=== PATIENT | female | born 1970 | race Caucasian/White ===

== ENCOUNTER 2017-04-28 13:22 | Observation (INO) ==
[2017-04-28] MEDS ORDERED: ASPIRIN PO STA (13:34)
[2017-04-28] MEDS ORDERED: PROTONIX IV ONE (13:36)
[2017-04-28] MEDS ORDERED: ZOFRAN IV ONE ×2 (13:36→16:45)
[2017-04-28] MEDS ORDERED: SODIUM CHLORIDE 0.9% INJ ONE (13:36)
--- NOTE | 2017-04-28 13:38 | EKG Report ---
Test Performed on : 04/28/2017 1:27:05 PM Test Reason : cp Blood Pressure : / mmHG Vent. Rate : 099 BPM Atrial Rate : 099 BPM P-R Int : 130 ms QRS Dur : 082 ms QT Int : 336 ms P-R-T Axes : 064 032 042 degrees QTc Int : 431 ms Normal sinus rhythm. Possible Left atrial enlargement Borderline ECG No previous ECGs available Unconfirmed Result
--- NOTE | 2017-04-28 13:45 | PROVIDER DOCUMENTATION ---
HPI-General Adult - General Chief Complaint: Chest Pain Stated Complaint: NAUSEA/VOMITING/FATIGUE Time Seen by Provider: 04/28/17 13:24 Source: patient Allergies/Adverse Reactions: Patient Allergies Allergy/AdvReac Type Severity Reaction Status Date / Time No Known Allergies Allergy Verified 04/28/17 13:47 Home Medications: Home Medication List Medication Instructions Recorded Confirmed Last Taken Type Aspirin EC 81 mg PO DAILY 04/28/17 04/28/17 04/28/17 04:00 History Dextroamphetamine/Amphetamine 20 mg PO DAILY 04/28/17 04/28/17 04/28/17 04:00 History [Adderall 20 mg Tablet] Ergocalciferol (Vitamin D2) 1 dose PO DIRECTED 04/28/17 04/28/17 04/25/17 History [Vitamin D] Escitalopram Oxalate [Escitalopram 20 mg PO DAILY 04/28/17 04/28/17 04/28/17 04: 00 History Oxalate] Hydrocodone Bit/Acetaminophen 1 each PO TID PRN 04/28/17 04/28/17 04/27/17 18: 00 History [Hydrocodon-Acetaminophen 5-325] Levothyroxine Sodium 50 mcg PO DAILY 04/28/17 04/28/17 04/28/17 04:00 History [Levothyroxine Sodium] Oxybutynin [Ditropan] 5 mg PO DAILY 04/28/17 04/28/17 04/28/17 04:00 History - History of Present Illness -Gen Adult Nature of Presenting Problems: Pt. is 46 yof that presents with c/o CP, SOB, with N/V. Pt. reports onset was this morning while getting ready and states it hasn't gone away. Pt. reports the pain is a pressure that won't go away and she denies any previous cardiac Hx but states her family has cardiac problems. Pt. denies any other symptoms. Location of Pain/Injury: reports: chest. denies: none, head, face, mouth, neck , upper extremity, hand(s), abdomen, back, pelvis, genitalia, lower extremity, feet, upper body, lower body, generalized, other Pain Radiation: reports: no radiation. denies: arm(s), back, buttocks, chest, epigastric, feet, groin, jaw, flank (L), legs (lower), LLQ, LUQ, neck, periumbilical, flank (R), RLQ, RUQ, shoulder(s), scapula, scrotal, sternal notch , suprapubic, legs (upper), urethral, vaginal, other Quality of Pain: reports: dull, pressure. denies: aching, burning, cramping, fullness, indigestion, sharp, stabbing, tearing, throbbing, tightness Severity: reports: moderate. denies: mild, severe Onset/Duration: reports: abrupt, this morning Timing: reports: still present, constant. denies: improving, gone now, resolved prior to arrival, intermittent, changing over time, getting worse Context/Activities at Onset: reports: light activity. denies: recent emotional stress, recent physical stress, recent trauma history, possible bad food, cold exposure, eating, out of country travel Modifying Factors: improves with: nothing Associated Symptoms: reports: chest pain, headaches, nausea, shortness of breath , vomiting. denies: denies symptoms, anxiety, arm pain, back/neck pain, constipation, cough, diaphoresis, diarrhea, dizziness, EENT symptoms, fatigue, fever/chills, genitourinary problems, heartburn, joint pain, loss of appetite, malaise, muscle aches, sinus congestion/drainage, rash, seizure, sensory/motor loss, pain with inspiration, swelling/mass in abdomen, syncope, weakness, trouble walking, other Similar Symptoms Previously?: Yes Recently seen or treated by another doctor?: No Review of Systems - Adult - REVIEW OF SYSTEMS - ADULT Constitutional: reports: see HPI. denies: chills, fever, fatique Eyes: reports: see HPI. denies: discharge, blurred vision, double vision Ears, Nose, Mouth & Throat: reports: see HPI. denies: ear pain, sinus problem, mouth/dental pain, throat swelling Cardiovascular: reports: see HPI, chest pain. denies: irregular heart rate, orthopnea, syncope Respiratory: reports: see HPI, shortness of breath. denies: cough, dyspnea on exertion, pleurisy, wheezing Gastrointestinal: reports: see HPI, nausea, vomiting. denies: abdominal pain, diarrhea, difficulty swallowing Genitourinary: reports: see HPI. denies: dysuria, flank pain, hesitency, urgency Musculoskeletal: reports: see HPI. denies: bone pain, joint pain, muscle aches , neck pain Integumentary: reports: see HPI. denies: hives, itching, rash, skin thickening Neurological: reports: see HPI, headache/migraines. denies: ataxia, numbness, seizure, tremors Psychiatric: reports: see HPI. denies: anxiety, depression, emotional problems , insomnia, panic attacks, suicidal thoughts Past History - Adult - PAST MEDICAL HISTORY-ADULT Review of Records: reports: Old Records Reviewed, Nursing Assessment Review, Medications Reviewed, Social history reviewed & non-contributory. - IMMUNIZATION STATUS Childhood Immunizations: See Nurse Assessment Flu Vaccine: See Nurse Assessment - FAMILY HISTORY Family History: reviewed, not pertinent - SOCIAL HISTORY Smoking: cigarettes, greater than 1 pack/day Provider spent 3-5 mins advising pt. on dangers of tobacco.: Discussed the need to stop smoking. Physical Exam-General - PHYSICAL EXAM-ADULT Initial Vital Signs Reviewed: Yes - CONSTITUTIONAL General Appearance: alert, mild distress, obese, anxious. negative: thin, lethargic, slow to respond, obtunded, combative - EYES Eyes: PERRL/EOMI, pink conjunctivae. negative: conjuctival exudate, scleral icterus, subconjunctival hemorrhage - HEAD, EARS, NOSE, MOUTH & THROAT HENMT: normocephalic/atraumatic, moist mucous membranes. negative: angioedema, frontal tenderness, maxillary tenderness - NECK Neck: non-tender, full range of motion, supple, normal inspection. negative: lymphadenopathy, trachial deviation, thyromegaly - RESPIRATORY Respiratory: lungs clear, normal breath sounds. negative: crackles, rales, rhonchi, stridor, wheezing - CARDIOVASCULAR Cardiovascular: normal peripheral pulses, regular rate, rhythm, no edema, no JVD , no murmur. negative: extra beats, friction rub, irregularly irregular - GASTROINTESTINAL (ABDOMEN) Abdominal Exam: normal bowel sounds, non tender, soft. negative: distended, guarding, rigid, rebound, tenderness, hernia, mass - LYMPHATIC Lymphatic: no adenopathy. negative: axilla node tender, cervical node tenderness - MUSCULOSKELETAL Back Exam: normal inspection, no CVA tenderness, no vertebral tenderness. negative: ecchymosis, swelling, vertebral tenderness Extremity: normal range of motion, non-tender, normal gait, normal inspection. negative: deformity, erythema, inflammation, swelling, tenderness Peripheral Pulses: radial (R): 2+, radial (L): 2+ - SKIN Integumentary: normal color, normal turgor, warm/dry. negative: cyanosis, diaphoresis, ecchymosis, erythema, jaundice, mottled, pallor, petechiae, purpura , rash, swelling, tenderness - NEUROLOGIC Neurologic: grossly normal, no motor/sensory deficits. negative: aphasia, facial droop, focal weakness, motor weakness, sensory deficit - PSYCHIATRIC Psych/Mental Status: normal mood/affect, normal thought content, normal thought process, oriented x 3, anxious. negative: paranoid, tearful Progress - PLAN OF CARE/RESULTS Progress/Plan/Lab Results: Vital Signs - 8 hr 04/28/17 13:24 Temperature 98.4 F Pulse Rate 102 H Respiratory Rate 18 Blood Pressure 127/73 O2 Sat by Pulse Oximetry 100 Orders Category Date Time Status Cardiac Monitoring DIRECTED Care 04/28/17 13:34 Active Oxygen Therapy- ED Nursing DIRECTED Care 04/28/17 13:34 Active Saline Loc NOW Care 04/28/17 13:34 Active CHEST-2 VIEWS [RAD] Stat Exams 04/28/17 13:34 Ordered CBC WITH ELECTRONIC DIFF [HEME] Stat Lab 04/28/17 13:34 Uncollected CK PROFILE [SP CHEM] Stat Lab 04/28/17 13:34 Uncollected COMPREHENSIVE METABOLIC PANEL [CHEM] Stat Lab 04/28/17 13:34 Uncollected D-DIMER [CHEM] Stat Lab 04/28/17 13:34 Uncollected MAGNESIUM [CHEM] Stat Lab 04/28/17 13:34 Uncollected PRO B-NATRIURETIC PEPTIDE Stat Lab 04/28/17 13:34 Uncollected PROTIME WITH INR [COAG] Stat Lab 04/28/17 13:34 Uncollected PTT [COAG] Stat Lab 04/28/17 13:34 Uncollected TROPONIN T Stat Lab 04/28/17 13:34 Uncollected Aspirin Med 04/28/17 13:34 Stat 325 mg PO STAT STA Ondansetron [Zofran] Med 04/28/17 13:36 Once 4 mg IV NOW ONE Pantoprazole [Protonix] Med 04/28/17 13:36 Once 40 mg IV NOW ONE Sodium Chloride 0.9% Med 04/28/17 13:36 Once 10 ml INJ NOW ONE EKG [EKG] Stat Ther 04/28/17 13:29 Ordered Laboratory Tests 04/28/17 04/28/17 04/28/17 13:56 13:56 13:56 WBC 17.79 H RBC 3.89 L Hgb 12.7 Hct 36.5 L MCV 93.8 MCH 32.6 H MCHC 34.8 RDW Std Deviation 11.8 Plt Count 270 MPV 9.4 Neut % (Auto) 73.9 Lymph % (Auto) 11.9 L Martin % (Auto) 13.9 H Eos % (Auto) 0.2 Baso % (Auto) 0.1 Neut # (Auto) 13.15 H Lymph # (Auto) 2.12 Martin # (Auto) 2.47 H Eos # (Auto) 0.03 Baso # (Auto) 0.02 PT INR PTT (Actin FS) D-Dimer 1.27 H Sodium 132 L Potassium 3.5 Chloride 92 L Carbon Dioxide 24 L Anion Gap 16 BUN 14 Creatinine 1.0 H Estimated GFR/1.73 m2 60 BUN/Creatinine Ratio 14 Glucose 118 H Calculated Osmolality 266 Calcium 9.0 Magnesium 1.7 Total Bilirubin 1.22 H AST 12 ALT 10 Alkaline Phosphatase 79 Creatine Kinase 67 Troponin T Ukk-E-Qpazzprrspi Pept Total Protein 7.2 Albumin 3.7 Globulin 3.5 Albumin/Globulin Ratio 1.1 TSH Urine Source Urine Color Urine Turbidity Urine pH Ur Specific Harrod Urine Protein Ur Glucose (Stick) Ur Ketones (Stick) Urine Blood Urine Nitrite Urine Bilirubin Urobilinogen Dipstick Urine Leukocytes Urine WBC (Auto) Urine RBC (Auto) U Epithel Cells (Auto) Urine Bacteria (Auto) Urine Crystals Small Round Cells Urine Casts Urine Yeast-like Cells Urine Test 04/28/17 04/28/17 04/28/17 13:56 13:56 13:56 WBC RBC Hgb Hct MCV MCH MCHC RDW Std Deviation Plt Count MPV Neut % (Auto) Lymph % (Auto) Martin % (Auto) Eos % (Auto) Baso % (Auto) Neut # (Auto) Lymph # (Auto) Martin # (Auto) Eos # (Auto) Baso # (Auto) PT 11.8 H INR 1.12 PTT (Actin FS) 34.1 D-Dimer Sodium Potassium Chloride Carbon Dioxide Anion Gap BUN Creatinine Estimated GFR/1.73 m2 BUN/Creatinine Ratio Glucose Calculated Osmolality Calcium Magnesium Total Bilirubin AST ALT Alkaline Phosphatase Creatine Kinase Troponin T < 0.010 Lhb-G-Ryweqibmxpa Pept 257 H Total Protein Albumin Globulin Albumin/Globulin Ratio TSH Urine Source Urine Color Urine Turbidity Urine pH Ur Specific Harrod Urine Protein Ur Glucose (Stick) Ur Ketones (Stick) Urine Blood Urine Nitrite Urine Bilirubin Urobilinogen Dipstick Urine Leukocytes Urine WBC (Auto) Urine RBC (Auto) U Epithel Cells (Auto) Urine Bacteria (Auto) Urine Crystals Small Round Cells Urine Casts Urine Yeast-like Cells Urine Test 04/28/17 04/28/17 04/28/17 13:56 14:24 14:24 WBC RBC Hgb Hct MCV MCH MCHC RDW Std Deviation Plt Count MPV Neut % (Auto) Lymph % (Auto) Martin % (Auto) Eos % (Auto) Baso % (Auto) Neut # (Auto) Lymph # (Auto) Martin # (Auto) Eos # (Auto) Baso # (Auto) PT INR PTT (Actin FS) D-Dimer Sodium Potassium Chloride Carbon Dioxide Anion Gap BUN Creatinine Estimated GFR/1.73 m2 BUN/Creatinine Ratio Glucose Calculated Osmolality Calcium Magnesium Total Bilirubin AST ALT Alkaline Phosphatase Creatine Kinase Troponin T Ies-U-Qsnrofbrurs Pept Total Protein Albumin Globulin Albumin/Globulin Ratio TSH 2.79 Urine Source CLEAN CATCH Urine Color YELLOW Urine Turbidity HAZY Urine pH 8.5 Ur Specific [place]rod 1.009 Urine Protein 30 A Ur Glucose (Stick) NEGATIVE Ur Ketones (Stick) 40 A Urine Blood SMALL A Urine Nitrite POSITIVE A Urine Bilirubin NEGATIVE Urobilinogen Dipstick NORMAL Urine Leukocytes LARGE A Urine WBC (Auto) TNTC A Urine RBC (Auto) <10 U Epithel Cells (Auto) <10 Urine Bacteria (Auto) 4+ Urine Crystals NONE SEEN Small Round Cells NONE SEEN Urine Casts NONE SEEN Urine Yeast-like Cells NONE SEEN Urine Test NEGATIVE 04/28/17 04/28/17 16:16 16:16 WBC RBC Hgb Hct MCV MCH MCHC RDW Std Deviation Plt Count MPV Neut % (Auto) Lymph % (Auto) Martin % (Auto) Eos % (Auto) Baso % (Auto) Neut # (Auto) Lymph # (Auto) Martin # (Auto) Eos # (Auto) Baso # (Auto) PT INR PTT (Actin FS) D-Dimer Sodium Potassium Chloride Carbon Dioxide Anion Gap BUN Creatinine Estimated GFR/1.73 m2 BUN/Creatinine Ratio Glucose Calculated Osmolality Calcium Magnesium Total Bilirubin AST ALT Alkaline Phosphatase Creatine Kinase 63 Troponin T < 0.010 Chb-Z-Gtxnajhfuks Pept Total Protein Albumin Globulin Albumin/Globulin Ratio TSH Urine Source Urine Color Urine Turbidity Urine pH Ur Specific Harrod Urine Protein Ur Glucose (Stick) Ur Ketones (Stick) Urine Blood Urine Nitrite Urine Bilirubin Urobilinogen Dipstick Urine Leukocytes Urine WBC (Auto) Urine RBC (Auto) U Epithel Cells (Auto) Urine Bacteria (Auto) Urine Crystals Small Round Cells Urine Casts Urine Yeast-like Cells Urine Test Orders Category Date Time Status Cardiac Monitoring DIRECTED Care 04/28/17 13:34 Active ED: Urine Bedside ORDERED Care 04/28/17 15:04 Active Oxygen Therapy- ED Nursing DIRECTED Care 04/28/17 13:34 Active Saline Loc NOW Care 04/28/17 13:34 Active CHEST-2 VIEWS [RAD] Stat Exams 04/28/17 13:34 Completed CTA [CT ANGIOGRM/PULMONARY ARTERIES] [CT] Stat Exams 04/28/17 15:00 Completed CBC WITH ELECTRONIC DIFF [HEME] Stat Lab 04/28/17 13:56 Completed CK PROFILE [SP CHEM] Stat Lab 04/28/17 13:56 Completed CK PROFILE [SP CHEM] Stat Lab 04/28/17 16:16 Completed COMPREHENSIVE METABOLIC PANEL [CHEM] Stat Lab 04/28/17 13:56 Completed D-DIMER [CHEM] Stat Lab 04/28/17 13:56 Completed MAGNESIUM [CHEM] Stat Lab 04/28/17 13:56 Completed TEST-URINE [PREG] Stat Lab 04/28/17 14:24 Completed PRO B-NATRIURETIC PEPTIDE Stat Lab 04/28/17 13:56 Completed PROTIME WITH INR [COAG] Stat Lab 04/28/17 13:56 Completed PTT [COAG] Stat Lab 04/28/17 13:56 Completed TROPONIN T Stat Lab 04/28/17 13:56 Completed TROPONIN T Stat Lab 04/28/17 16:16 Completed TSH Stat Lab 04/28/17 13:56 Completed URINALYSIS W/POSS RFLX CULT-1 [URINALYSIS] Stat Lab 04/28/17 14:24 Completed URINE CULTURE [RM] Routine Lab 04/28/17 15:24 Received URINE MANUAL MICROSCOPIC [URINALYSIS] Stat Lab 04/28/17 14:24 Completed 0.9% Sodium Chloride Inj [Ns] 1,000 ml Med 04/28/17 15:45 Active IV 125 mls/hr Aspirin Med 04/28/17 13:34 Discontinued 325 mg PO STAT STA CefTRIAXONE [Rocephin] 1 gm Med 04/28/17 15:45 Discontinued 0.9% Sodium Chloride Inj [Ns] 50 ml IV NOW Lido/Lewis Alk/Al&mg Hydrox [G.i. Cocktail] Med 04/28/17 16:48 Once 30 ml PO NOW ONE Morphine Med 04/28/17 16:45 Once 2 mg IV NOW ONE Ondansetron [Zofran] Med 04/28/17 13:36 Discontinued 4 mg IV NOW ONE Ondansetron [Zofran] Med 04/28/17 16:45 Once 4 mg IV NOW ONE Pantoprazole [Protonix] Med 04/28/17 13:36 Discontinued 40 mg IV NOW ONE Sodium Chloride 0.9% Med 04/28/17 13:36 Discontinued 10 ml INJ NOW ONE EKG [EKG] Stat Ther 04/28/17 13:29 Draft EKG [EKG] Stat Ther 04/28/17 15:47 Draft Vital Signs Temp Pulse Resp BP Pulse Ox 04/28/17 15:44 102 H 18 108/66 96 04/28/17 13:24 98.4 F 102 H 18 127/73 100 No Known Allergies Allergy (Verified 04/28/17 13:47) Aspirin EC 81 mg PO DAILY 04/28/17 Dextroamphetamine/Amphetamine [Adderall 20 mg Tablet] 20 mg PO DAILY 04/28/17 Ergocalciferol (Vitamin D2) [Vitamin D] 1 dose PO DIRECTED 04/28/17 Escitalopram Oxalate [Escitalopram Oxalate] 20 mg PO DAILY 04/28/17 Hydrocodone Bit/Acetaminophen [Hydrocodon-Acetaminophen 5-325] 1 each PO TID PRN 04/28/17 Levothyroxine Sodium [Levothyroxine Sodium] 50 mcg PO DAILY 04/28/17 Oxybutynin [Ditropan] 5 mg PO DAILY 04/28/17 I&O 04/27/17 04/28/17 04/29/17 06:59 06:59 06:59 Output Total 40 / 40 Balance -40 / -40 Laboratory 04/28/17 04/28/1704/28/17 16:16 16:16 14:24 WBC RBC Hgb Hct MCV MCH MCHC RDW Std Deviation Plt Count MPV Neut % (Auto) Lymph % (Auto) Martin % (Auto) Eos % (Auto) Baso % (Auto) Neut # (Auto) Lymph # (Auto) Martin # (Auto) Eos # (Auto) Baso # (Auto) PT INR PTT (Actin FS) D-Dimer Sodium Potassium Chloride Carbon Dioxide Anion Gap BUN Creatinine Estimated GFR/1.73 m2 BUN/Creatinine Ratio Glucose Calculated Osmolality Calcium Magnesium Total Bilirubin AST ALT Alkaline Phosphatase Creatine Kinase 63 Troponin T < 0.010 Nft-Q-Mdcfokdlwcy Pept Total Protein Albumin Globulin Albumin/Globulin Ratio TSH Urine Source Urine Color Urine Turbidity Urine pH Ur Specific Har[place] Urine Protein Ur Glucose (Stick) Ur Ketones (Stick) Urine Blood Urine Nitrite Urine Bilirubin Urobilinogen Dipstick Urine Leukocytes Urine WBC (Auto) Urine RBC (Auto) U Epithel Cells (Auto) Urine Bacteria (Auto) Urine Crystals Small Round Cells Urine Casts Urine Yeast-like Cells Urine Test NEGATIVE 04/28/17 04/28/17 04/28/17 14:24 13:56 13:56 WBC RBC Hgb Hct MCV MCH MCHC RDW Std Deviation Plt Count MPV Neut % (Auto) Lymph % (Auto) Martin % (Auto) Eos % (Auto) Baso % (Auto) Neut # (Auto) Lymph # (Auto) Martin # (Auto) Eos # (Auto) Baso # (Auto) PT INR PTT (Actin FS) D-Dimer Sodium Potassium Chloride Carbon Dioxide Anion Gap BUN Creatinine Estimated GFR/1.73 m2 BUN/Creatinine Ratio Glucose Calculated Osmolality Calcium Magnesium Total Bilirubin AST ALT Alkaline Phosphatase Creatine Kinase Troponin T < 0.010 Niu-W-Jorzuzuqycj Pept Total Protein Albumin Globulin Albumin/Globulin Ratio TSH 2.79 Urine Source CLEAN CATCH Urine Color YELLOW Urine Turbidity HAZY Urine pH 8.5 Ur Specific Harrod 1.009 Urine Protein 30 A Ur Glucose (Stick) NEGATIVE Ur Ketones (Stick) 40 A Urine Blood SMALL A Urine Nitrite POSITIVE A Urine Bilirubin NEGATIVE Urobilinogen Dipstick NORMAL Urine Leukocytes LARGE A Urine WBC (Auto) TNTC A Urine RBC (Auto) <10 U Epithel Cells (Auto) <10 Urine Bacteria (Auto) 4+ Urine Crystals NONE SEEN Small Round Cells NONE SEEN Urine Casts NONE SEEN Urine Yeast-like Cells NONE SEEN Urine Test 04/28/17 04/28/17 04/28/17 13:56 13:56 13:56 WBC RBC Hgb Hct MCV MCH MCHC RDW Std Deviation Plt Count MPV Neut % (Auto) Lymph % (Auto) Martin % (Auto) Eos % (Auto) Baso % (Auto) Neut # (Auto) Lymph # (Auto) Martin # (Auto) Eos # (Auto) Baso # (Auto) PT 11.8 H INR 1.12 PTT (Actin FS) 34.1 D-Dimer 1.27 H Sodium Potassium Chloride Carbon Dioxide Anion Gap BUN Creatinine Estimated GFR/1.73 m2 BUN/Creatinine Ratio Glucose Calculated Osmolality Calcium Magnesium Total Bilirubin AST ALT Alkaline Phosphatase Creatine Kinase Troponin T Jho-Z-Zvxbhvywtcj Pept 257 H Total Protein Albumin Globulin Albumin/Globulin Ratio TSH Urine Source Urine Color Urine Turbidity Urine pH Ur Specific [place] Urine Protein Ur Glucose (Stick) Ur Ketones (Stick) Urine Blood Urine Nitrite Urine Bilirubin Urobilinogen Dipstick Urine Leukocytes Urine WBC (Auto) Urine RBC (Auto) U Epithel Cells (Auto) Urine Bacteria (Auto) Urine Crystals Small Round Cells Urine Casts Urine Yeast-like Cells Urine Test 04/28/17 04/28/17 13:56 13:56 WBC 17.79 H RBC 3.89 L Hgb 12.7 Hct 36.5 L MCV 93.8 MCH 32.6 H MCHC 34.8 RDW Std Deviation 11.8 Plt Count 270 MPV 9.4 Neut % (Auto) 73.9 Lymph % (Auto) 11.9 L Martin % (Auto) 13.9 H Eos % (Auto) 0.2 Baso % (Auto) 0.1 Neut # (Auto) 13.15 H Lymph # (Auto) 2.12 Martin # (Auto) 2.47 H Eos # (Auto) 0.03 Baso # (Auto) 0.02 PT INR PTT (Actin FS) D-Dimer Sodium 132 L Potassium 3.5 Chloride 92 L Carbon Dioxide 24 L Anion Gap 16 BUN 14 Creatinine 1.0 H Estimated GFR/1.73 m2 60 BUN/Creatinine Ratio 14 Glucose 118 H Calculated Osmolality 266 Calcium 9.0 Magnesium 1.7 Total Bilirubin 1.22 H AST 12 ALT 10 Alkaline Phosphatase 79 Creatine Kinase 67 Troponin T Uom-H-Yawjciexjgu Pept Total Protein 7.2 Albumin 3.7 Globulin 3.5 Albumin/Globulin Ratio 1.1 TSH Urine Source Urine Color Urine Turbidity Urine pH Ur Specific [place] Urine Protein Ur Glucose (Stick) Ur Ketones (Stick) Urine Blood Urine Nitrite Urine Bilirubin Urobilinogen Dipstick Urine Leukocytes Urine WBC (Auto) Urine RBC (Auto) U Epithel Cells (Auto) Urine Bacteria (Auto) Urine Crystals Small Round Cells Urine Casts Urine Yeast-like Cells Urine Test Discussed results and plan of care with patient. Patient agrees with plan and verbalizes understanding. Result Diagrams: 04/28/17 13:56 04/28/17 13:56 - XRAY 1 XRAY Study: Chest XRAY Interpretation: NAD ([place]) - CT/MRI 1 CT Study: Thorax CT Results: No evidence of PE ([place]) - CONSULTS/PCP/HOSPITALIST Notification #1 *Consult/PCP/Hospitalist*: Jodi Varma Time Discussed: 16:51 Reason/Comments: Admission Consult Disposition: Admit Departure - Departure Date of Disposition Decision: 04/28/17 Time of Disposition Decision: 16:52 DIAGNOSIS: UTI (urinary tract infection) Qualifiers: Urinary tract infection type: acute cystitis Hematuria presence: without hematuria Qualified Code(s): N30.00 - Acute cystitis without hematuria Chest pain Qualifiers: Chest pain type: unspecified Qualified Code(s): R07.9 - Chest pain, unspecified Disposition: ADMITTED INPATIENT 09 Certified Medical Emergency: Emergent Condition: Stable Referrals and Follow-Ups: None,PCP [Primary Care Provider] - - Critical Care Note This patient required my direct & personal management of CC.: No Attestation - Physician/ FRANKO Attestation Patient care was provided by Advanced Practice Provider:: Yes Advanced Practice Provider:: Obinna Levi (The physician is on site and was consulted but did not have face to face consultation with the patient.) Advanced Practice Provider documentation review:: The Mid-level provider documentation, treatment plan and medical decision making was reviewed by the physician who agrees with all treatment and medical decision making by the MLP. The physician spent face to face time with patient:: No Advanced Practice Provider documentation review:: Supervising physician onsite and consulted in the evaluation and care of this patient. The physician did not have a face to face encounter with the patient.
--- NOTE | 2017-04-28 13:52 | ED EKG INTERP ---
This chart was entered by Tamra Velez Scribe, acting as scribe for Pam Maldonado MD. EKG Interpretation - EKG Time of EKG reading by physician:: 13:27 EKG Read and Signed by:: Pam Maldonado EKG Interpretation (*Must complete 3 of following elements*): Normal Rate: 99 (possible left atrial enlargement) Rhythm: NSR Attestation - Physician/ FRANKO Attestation Patient care was provided by Advanced Practice Provider:: No The physician spent face to face time with patient:: Yes Advanced Practice Provider documentation review:: Supervising physician onsite and consulted in the evaluation and care of this patient. The physician did have a face to face encounter with the patient. This chart was documented by the indicated scribe, (Tamra Velez Scribe) and accurately reflects the services I performed and decisions made by meJoel Wenli X, MD, as attested by the provider's signature.
[2017-04-28 14:16] LABS: BASO% 0.1 % (0.0-0.8); EOS# 0.03 X1000 (0.0-0.7); EOS% 0.2 % (0.0-10.0); HEMATOCRIT 36.5 % (37.0-47.0); HEMOGLOBIN 12.7 g/dL (12.0-16.0); LYMPH# 2.12 X1000 (1.2-3.4); LYMPH% 11.9 % (20.5-51.1); MANUAL DIFF NEEDED? NO; MCH 32.6 PG (27-31); MCHC 34.8 g/dL (33-37); MCV 93.8 FL (81-99); MONO# 2.47 X1000 (0.11-0.59); MONO% 13.9 % (1.7-9.3); MPV 9.4 FL (7.4-10.4); NEUT% 73.9 % (42.2-75.2); PLT 270 X1000 (130-400); RBC 3.89 XMIL (4.2-5.4)
[2017-04-28 14:21] LABS: INR 1.12; PROTIME 11.8 Seconds (9.2-11.7); PTT 34.1 Seconds (22.0-36.0)
--- NOTE | 2017-04-28 14:33 | Diag Imaging Result Doc PS360 ---
EXAM: CHEST-2 VIEWS HISTORY: CP TECHNIQUE: PA and lateral chest COMMENT: There are no previous studies. There is no evidence of acute cardiac or pulmonary disease. IMPRESSION: No acute disease. Electronically signed by Vinny Davis 04/28/2017 2:30 PM
[2017-04-28 14:40] LABS: ALBUMIN 3.7 g/dL (3.5-5.0); MAGNESIUM 1.7 mg/dL (1.5-2.7); POTASSIUM 3.5 mmol/L (3.5-5.1); TOTAL BILIRUBIN 1.22 mg/dL (0.20-1.00); TOTAL PROTEIN 7.2 g/dL (6.3-8.3)
[2017-04-28 15:06] LABS: URINE SOURCE CLEAN CATCH
[2017-04-28 15:09] LABS: BILIRUBIN URINE NEGATIVE (NEGATIVE); BLOOD URINE SMALL (NEGATIVE); COLOR YELLOW; GLUCOSE URINE NEGATIVE (NEGATIVE); LEUKOCYTES URINE LARGE (NEGATIVE); NITRITE URINE POSITIVE (NEGATIVE); PH URINE 8.5; PROTEIN URINE 30 mg/dL (NEGATIVE); SP GRAVITY URINE 1.009; TURBIDITY URINE HAZY (CLEAR); URINE MICRO REVIEW NEEDED? YES; UROBILINOGEN URINE NORMAL (NORMAL)
[2017-04-28 15:22] LABS: URINE WBC TNTC /HPF (<10)
[2017-04-28 15:23] LABS: URINE CASTS NONE SEEN; URINE CRYSTALS NONE SEEN; URINE CULTURE NEEDED? YES; URINE RBC <10 /HPF (<10); URINE SMALL ROUND CELLS NONE SEEN
[2017-04-28] MEDS ORDERED: NS 1,000 ML IV ONE (15:45)
[2017-04-28] MEDS ORDERED: ROCEPHIN 1 GM in NS 50 ML IV ONE (15:45)
--- NOTE | 2017-04-28 16:20 | Diag Imaging Result Doc PS360 ---
EXAM: CT ANGIOGRM/PULMONARY ARTERIES HISTORY: CP, SOB, elevated d-dimer TECHNIQUE: CT of the chest with intravenous contrast and CT pulmonary angiogram protocol with 3-D MIPS and dose reduction protocol (clarity.) COMMENT: There is patchy air trapping in both lungs. This may be due to poor inspiration. There is no evidence of focal opacity to suggest acute pulmonary disease. There is a tiny pleural-based nodule in the left costophrenic sulcus on image 113 measuring less than 5 mm in diameter. No filling defects are seen in the pulmonary arteries. The aorta is not distended and there is no evidence of dissection. No abnormal fluid collections are present. There is no evidence of significant adenopathy. No significant abnormalities are demonstrated in the visualized portion of the abdomen. The regional skeleton appears to be intact. IMPRESSION: No evidence of pulmonary emboli. Electronically signed by Vinny Davis 04/28/2017 4:18 PM
--- NOTE | 2017-04-28 16:30 | EKG Report ---
Test Performed on : 04/28/2017 4:06:05 PM Test Reason : Repeat Blood Pressure : / mmHG Vent. Rate : 101 BPM Atrial Rate : 101 BPM P-R Int : 128 ms QRS Dur : 080 ms QT Int : 352 ms P-R-T Axes : 069 035 038 degrees QTc Int : 456 ms Sinus tachycardia. Nonspecific ST abnormality Abnormal ECG When compared with ECG of 28-APR-2017 13:27, (Unconfirmed) No significant change was found Unconfirmed Result
[2017-04-28] MEDS ORDERED: MORPHINE IV ONE (16:45)
--- NOTE | 2017-04-28 16:46 | ED EKG INTERP ---
This chart was entered by Tamra Velez Scribe, acting as scribe for Pam Maldonado MD. EKG Interpretation - EKG Time of EKG reading by physician:: 16:06 EKG Read and Signed by:: Pam Maldonado EKG Interpretation (*Must complete 3 of following elements*): Abnormal Rate: 101 (NONSPECIFIC ST ABNORMALITY) Rhythm: SINUS TACHYCARDIA Attestation - Physician/ FRANKO Attestation Patient care was provided by Advanced Practice Provider:: No The physician spent face to face time with patient:: Yes Advanced Practice Provider documentation review:: Supervising physician onsite and consulted in the evaluation and care of this patient. The physician did have a face to face encounter with the patient. This chart was documented by the indicated scribe, (Tamra Velez Scribe) and accurately reflects the services I performed and decisions made by me, Pam Maldonado MD, as attested by the provider's signature.
[2017-04-28 16:47] LABS: UR EPITHELIAL CELLS <10 /HPF (<10); URINE BACTERIA 4+ /HPF
[2017-04-28] MEDS ORDERED: G.I. COCKTAIL PO ONE (16:48)
[2017-04-28] MEDS ORDERED: DUONEB (A & A) INH PRN (18:04)
[2017-04-28] MEDS ORDERED: ZOFRAN IV PRN (18:39)
[2017-04-28] MEDS ORDERED: VITAMIN D PO SCH (18:39)
[2017-04-28 18:49] LABS: UR AMPHETAMINES QUAL NONE DETECTED (NONE DETECT); UR BARBITUATES QUAL NONE DETECTED (NONE DETECT); UR BENZODIAZEPIN QUAL NONE DETECTED (NONE DETECT); UR CANNABINOIDS QUAL NONE DETECTED (NONE DETECT); UR COCAINE QUAL NONE DETECTED (NONE DETECT); UR METHADONE QUAL NONE DETECTED (NONE DETECT); UR OPIATES QUAL NONE DETECTED (NONE DETECT); UR OXYCODONE QUAL NONE DETECTED (NONE DETECT); UR PCP QUAL NONE DETECTED (NONE DETECT)
--- NOTE | 2017-04-28 19:19 | Diag Imaging Result Doc PS360 ---
EXAM: CT ABDOMEN/PELVIS W/O CONTRAST HISTORY: unintentional weight loss TECHNIQUE: CT urogram without contrast COMMENT: There is ill-defined pleural-based opacities in the right lower lobe both posterior laterally and medially. This is more conspicuous on the previous study of this date due to better inspiration on the current study. The possibility of minimal pneumonia versus fibrosis is suggested. There are no previous studies. There are no gallstones. There is some retained excreted contrast material in the urinary tract, as well as some retained contrast medium in the parenchyma both kidneys. This may be indicative of pyelonephritis. There is mild bilateral perinephric stranding. There is no evidence of obstructive change. The urinary bladder is not distended. The appendix is normal in appearance. There is no evidence of bowel obstruction or cholecystitis, however there may be some small stones layering dependently in the gallbladder. There are bilateral ovarian cysts the largest on the right side measuring 19 mm in diameter. There is no evidence of free fluid. IMPRESSION: 1. The possibility of pyelonephritis cannot be excluded. 2. Ovarian cysts. 3. Cholelithiasis. Electronically signed by Vinny Davis 04/28/2017 7:17 PM
[2017-04-28] MEDS: TYLENOL PO PRN (19:48)
[2017-04-28] MEDS: LOVENOX SUBQ SCH (19:48)
[2017-04-28 20:36] LABS: HDL 24 mg/dL (45-65); LDL 76 mg/dL; TRIGLYCERIDES 106 mg/dL (35-135); VLDL 21 mg/dL
[2017-04-28 20:37] LABS: HEMOGLOBIN A1C 5.4 % (4.8-6.0)
--- NOTE | 2017-04-29 03:33 | HISTORY AND PHYSICAL ---
PRIMARY CARE PROVIDER: Dr. Gallagher, in [place]. CHIEF COMPLAINT: Chest pain, nausea, vomiting. HISTORY OF PRESENT ILLNESS: Ms. Sandra Liz is a 46-year-old female with a medical history of hyperlipidemia, diabetes mellitus type 2, obstructive sleep apnea, COPD, who states that this morning about 4 a.m., she was getting dressed for work, as she works with [employer] with heavy stuff, and developed a sudden-onset substernal pain, anterior chest. It was mostly this morning, it was 3-4. She described it as dull. She got a sudden onset of vomiting after she took some Tums. She has remained nauseated all day. She was sweaty at the time it happened, and had some chills, and she also states she has had chills all day. She has been fatigued, and states that she has had a bit of heavy breathing, dizzy and lightheaded. She currently has no chest pain. It is 0/10. She states that her food, she has not had any taste with her food, so she has not eaten food in 2 days. One of the labs revealed that she had a urinary tract infection. Further questioning revealed that she has had burning with urination and a foul smell since last week. She takes Azo, which helped with the pain. She has received antibiotic therapy since being here. Will admit for a full cardiac workup. She also has a family history that is significant of DVTs and strokes and myocardial infarctions at a young age, so we will do a hypercoagulable workup. Will also need to rule out any GI cause for this chest pain, as it was more epigastric to chest area where she pointed, to rule such things as hiatal hernia. PAST MEDICAL HISTORY: Hyperlipidemia, hypothyroidism, attention deficit disorder, anxiety, depression, vitamin B12 deficiency, vitamin D deficiency, diabetes mellitus type 2, diet- controlled, obstructive sleep apnea, but will not wear CPAP, right ovarian cyst , herniated disk, COPD, diverticulosis, and stress incontinence. PAST SURGICAL HISTORY: Left foot plate and bunionectomy, right hand carpal tunnel. Last colonoscopy was 5 years ago. She has had 2 C-sections. SOCIAL HISTORY: 1-2 pack per day smoker for over 30 years. Denies alcohol or illicit drug use. She is to her high school sweetheart. Has 2 young sons, one is 19 in the , and the other one is 14, living at home. 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 FAMILY HISTORY: Mother in her sleep at the age of 61. Father had peripheral vascular and arterial disease, needing lower extremity amputations. He also had dementia. Had an aunt that had DVT. REVIEW OF SYSTEMS: Fourteen-point review of systems was completed, and all were negative, except for those mentioned in the above HPI. Pertinent positives were diaphoresis, chills, dizziness, lightheadedness, nausea, chest pain, bladder pain with urination, and heavy breathing. ALLERGIES: No known drug allergies. HOME MEDICATIONS: Aspirin enteric-coated 81 mg p.o. daily, Adderall 20 mg p.o. daily, vitamin D2 50,000 units p.o. as directed, escitalopram oxalate 20 mg p.o. daily, [place] 5 one tab p.o. t.i.d. p.r.n., Synthroid 50 mcg p.o. daily, Ditropan 5 mg p.o. daily. PHYSICAL EXAMINATION: VITAL SIGNS: Temperature 98.4 degrees, heart rate 102, respiratory rate 18, blood pressure 108/66, O2 saturation 96%. Five feet 2 inches tall, 173 pounds. GENERAL: Ms. Sandra Liz is a 46-year-old female. She is in no acute distress. She is able to answer questions appropriately. HEENT: Atraumatic, normocephalic. Pupils equal, round, reactive to light. Extraocular movements intact. Mucous membranes are dry. NECK: Trachea is midline. CARDIOVASCULAR: S1, S2. Tachycardic rate and rhythm. No rubs, gallops, or murmurs. No carotid bruits or JVD. She has got +2 radial and dorsalis pedal pulses. There is no peripheral edema noted. NEUROLOGIC: Alert and oriented x4. Moves all extremities equally. SKIN: Warm, dry, intact. LABORATORY DATA: White blood cells 17,000, hemoglobin 12, hematocrit 36, platelet count 270,000. INR is 1.12, PTT is 34.1, D-dimer 1.27. Sodium 132, potassium 3.5, BUN 14, creatinine is 1.0, glucose 118. Calcium 9.0, magnesium 1.7. Total bilirubin is 1.22. AST 12, ALT 10. CK 63. Troponin less than 0.01. ProBNP is 257. TSH 2.79. Urinalysis: 30 protein, 40 ketones, small blood, positive nitrites, large leukocytes, too numerous to count white blood cells, 4+ bacteria. IMAGING DATA: EKG on admit at 1:30: Normal sinus rhythm, no ST elevations. QTc was 431, and rate was 99. EKG at 3:47: Showed sinus tachycardia, rate 101, QTc was 456, with no ST elevation. Chest x-ray: No acute disease. Pulmonary arteriogram: No evidence of pulmonary emboli. ASSESSMENT AND PLAN: 1. Chest pain. She does have a family history of early age coronary disease and deep venous thrombosis. She has hyperlipidemia and diabetes. She has got some mild obesity, with a BMI of 31.6. She does smoke. We will do cardiac enzymes, consult Cardiology, and EKG in the morning. We will be checking her hemoglobin A1c, lipid panel, echocardiogram , start her on a heart-healthy diet. 2. Urinary tract infection. Will continue her on ceftriaxone 1 g IV q.24 hours. 3. Given family history of early stroke and myocardial infarction, we will go ahead and do a hypercoagulable workup. 4. Chronic obstructive pulmonary disease. No exacerbation. We will do albuterol and Atrovent nebs as needed. 5. Diabetes mellitus type 2, diet-controlled at home. Her glucose on admit was 118. Will follow up with her hemoglobin A1c. 6. Hypothyroidism. Continue with Synthroid. 7. Hyperlipidemia. Apparently, she does not take a statin for this. We will follow up with her cholesterol level, and likely start a statin. 8. Deep venous thrombosis prophylaxis. Lovenox 40 mg subcu every 24 hours. Dictated by CHA Benton for Roberto Méndez MD Patient seen and examined. Agree with CHA note. It reflects my assessment and plan. Patient came to hospital complaining of epigastric pain, abdominal discomfort and bloating. Pain is not substernal. Patient with family history of cardiovascular disease. Will consult cardiology. She may need stress test either inpatient or outpatient. Will do CT abdomen and pelvis considering unintentional weight loss. Will check echocardiogram. Will do urine culture because patient has some burning on urination and WBC is elevated. Will check TSH for hypothyroidism. Will check HbA1c for diabetes. Will continue with home medications. cc: CHA Benton MD Hobert J. Sharpton, DO MTDD
[2017-04-29] MEDS: TYLENOL PO PRN (03:45)
[2017-04-29 05:47] LABS: MANUAL DIFF NEEDED? NO
[2017-04-29 05:52] LABS: BASO% 0.1 % (0.0-0.8); EOS% 0.7 % (0.0-10.0); HEMATOCRIT 35.9 % (37.0-47.0); HEMOGLOBIN 12.5 g/dL (12.0-16.0); IMM GRAN# 0.06 X1000 (0.0-0.04); IMM GRAN% 0.4 % (0.0-0.5); LYMPH# 1.82 X1000 (1.2-3.4); LYMPH% 12.3 % (20.5-51.1); MCH 31.9 PG (27-31); MCHC 34.8 g/dL (33-37); MCV 91.6 FL (81-99); MONO# 2.45 X1000 (0.11-0.59); MONO% 16.6 % (1.7-9.3); MPV 9.9 FL (7.4-10.4); NEUT% 69.9 % (42.2-75.2); PLT 285 X1000 (130-400); RBC 3.92 XMIL (4.2-5.4)
[2017-04-29] MEDS: SYNTHROID PO SCH (06:20)
[2017-04-29 06:23] LABS: AGAP 16; ALBUMIN 3.2 g/dL (3.5-5.0); ALKALINE PHOSPHATASE 72 U/L (32-104); BUN 10 mg/dL (8-22); CALCIUM 8.5 mg/dL (8.8-10.2); CHLORIDE 96 mmol/L (98-107); COSMO 272; GOT 11 U/L (10-30); GPT 9 U/L (10-36); POTASSIUM 3.5 mmol/L (3.5-5.1); SODIUM 136 mmol/L (136-145); TCO2 24 mmol/L (25-35); TOTAL BILIRUBIN 0.69 mg/dL (0.20-1.00); TOTAL PROTEIN 6.4 g/dL (6.3-8.3)
[2017-04-29] MEDS: DITROPAN PO SCH (09:33)
[2017-04-29] MEDS: ASPIRIN EC PO SCH (09:33)
[2017-04-29] MEDS: LEXAPRO PO SCH (09:33)
[2017-04-29] MEDS: ADDERALL PO SCH (09:33)
[2017-04-29] MEDS: NORCO-5 PO PRN ×2 (11:51→21:14)
--- NOTE | 2017-04-29 14:00 | CONSULTATION ---
DATE OF CONSULTATION: 04/29/2017 INDICATION: Chest discomfort. HISTORY OF PRESENT ILLNESS: Ms. Liz is a 46-year-old white female with a history of diabetes and obstructive sleep apnea. She reported to the hospital on the , with complaints of discomfort in her chest, nausea, vomiting, lightheadedness, fevers and chills, as well as back pain and urinary urgency. During evaluations with CTs of her abdomen, as well as elevated white count and fever, it appears that she has pyelonephritis. She describes the discomfort that she had as an aching-type discomfort, and seemed to occur when she was associated with episodes of nausea and vomiting that occurred yesterday. None of the episodes seemed to be exertional in nature. She has not had any of those episodes today. She has had decreased oral intake secondary to continued nausea yesterday. She has been taking an [id number] urinary tract infection medication at home, but has not sought any medical care, or been on any recent antibiotics. PAST MEDICAL HISTORY: 1. Significant for hyperlipidemia. 2. Hypothyroidism. 3. ADD-HD. 4. Depression. 5. Diabetes mellitus. 6. Obstructive sleep apnea. SOCIAL HISTORY: She is . She smokes 1-2 packs per day and has done so for over 30 years. 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 FAMILY HISTORY: Mother in her sleep at age 61. Father had a history of peripheral vascular disease. REVIEW OF SYSTEMS: A 10-system review of systems is negative, except for those mentioned in HPI. PHYSICAL EXAMINATION: Vital Signs: She was febrile to 101.0 yesterday at 1850. Most recent T- max was 99.7 degrees at 1130 this morning. Her heart rate is 90, blood pressure is 123/80. General: She is in no acute distress. HEENT: Oropharynx is moist. She has normal dentition. Her eye examination shows pink conjunctivae, white sclerae. Neck: Shows no obvious thyromegaly or thyroid tenderness. Cardiovascular: She is in a regular rate and rhythm. She has no obvious murmurs. She has no S3. She has no lower extremity edema. Chest: Clear to auscultation bilaterally. She has no increased work of breathing. Abdomen: Soft, nontender, nondistended. She has no obvious organomegaly. She did have costovertebral angle tenderness to percussion on the left. Musculoskeletal: She has normal symmetric muscle tone. No long bone tenderness to palpation. Neurological: She is moving all extremities well. Cranial nerves 2-12 are intact, without any sensation deficits. Psychiatric: She is somewhat anxious. She had to be redirected to the conversation a couple of times. She reports this is consistent with her usual ADD-HD. PERTINENT DATA: Her EKG at 1327 yesterday shows sinus rhythm, 99 beats per minute. No signs of ischemic changes. Subsequent EKG at 1606 yesterday shows sinus rhythm, no signs of ischemic changes or evidence for old infarct. Her imaging studies of the abdomen showed a possibility of pyelonephritis, as well as ovarian cysts and cholelithiasis. Her CT of the chest does not show evidence of pulmonary emboli. Her laboratory data shows a white count yesterday of 17.8, decreasing to 14.8 today, hematocrit today of 36, platelet count of 285,000, sodium 136, potassium 3.5, BUN 10, creatinine 0.9. Cardiac enzymes negative times multiple sets. Her proBNP was 257 yesterday. Her albumin is 3.2 today. Urinalysis was markedly abnormal, with [id number]- count WBCs, 4+ bacteria, positive nitrite. Her urine culture has demonstrated Gram negative rods, with no further isolation. ASSESSMENT: Pyelonephritis. PLAN: Patient's chest discomfort is most likely secondary to her gastrointestinal symptoms associated with the pyelonephritis. Most of the symptoms were occurring in the setting of nausea, vomiting, and dry heaving. She does have risk factors, including tobacco use, diabetes, as well as a presumed hyperlipidemia. It would be reasonable to do an outpatient stress. If she is in the hospital on Monday, we can pursue that. Otherwise, I would just pursue doing an outpatient stress in her. This would be mostly for risk assessment, considering her history of diabetes. Presently, I will follow up on the echocardiogram. I have no further recommendations at this point. cc: Connor Erickson MD
[2017-04-29] MEDS ORDERED: SODIUM CHLORIDE 0.9% INJ PRN (14:27)
[2017-04-29] MEDS ORDERED: PROTONIX IV SCH (14:30)
--- NOTE | 2017-04-29 14:43 | ECHO REPORT ---
ORDER DATE: 04/28/2017 INDICATION FOR THE STUDY: Chest discomfort, nausea and vomiting. FINDINGS: 1. Right atrium is mildly enlarged at 4 cm. 2. Trace tricuspid regurgitation. RV systolic pressure of 29. 3. Normal RV size and systolic function. 4. Trace pulmonic insufficiency. 5. Normal left atrial size at 3.6. 6. No mitral prolapse. Trace mitral regurgitation. 7. Normal LV size, end-diastolic dimension of 4.5. Normal wall thicknesses with a posterior and interventricular septal wall thickness of 0.8 cm each. Normal LV systolic function. Estimated EF 60%. Definity echo contrast was used to delineate the endocardial borders. There is no evidence of intraventricular thrombus. 8. Aortic valve opens well. It is trileaflet. No evidence of stenosis or insufficiency. 9. Aorta appears normal in visualized segments. 10. No pericardial effusion seen. cc: MD Roberto Valdivia MD
[2017-04-29] MEDS ORDERED: ROCEPHIN 1 GM in NS 50 ML IV SCH (17:00)
[2017-04-29] MEDS ORDERED: NS 500 ML ONE (18:13)
[2017-04-29] MEDS: LIDODERM TOP SCH ×2 (18:26→23:24)
[2017-04-29] MEDS: NICODERM PATCH TD SCH (18:26)
--- NOTE | 2017-04-29 18:48 | PROGRESS NOTE ---
DATE: 04/29/2017 SUBJECTIVE: The patient reports feeling fine, although there is still mild bloating and abdominal distention noted. Sometimes the patient reports some episodic abdominal pain in the right upper quadrant. She denies any fever or chills. OBJECTIVE: Vital Signs: Temperature 98.7 degrees, heart rate 90, respiratory rate 16, blood pressure 123/80, O2 saturation 100% on room air. General Examination: This is a 46-year-old female, lying in bed, in no acute distress. HEENT: Head is normocephalic, atraumatic. Anicteric sclerae and pale conjunctivae. Neck: Supple. No JVD noted. No carotid bruits. Cardiovascular: S1, S2 heard. No murmurs, gallops, or rubs. Regular rate and rhythm. Respiratory: Clear bilaterally to auscultation. No work of breathing or using accessory muscles. Abdomen: Soft. A little bit tender to palpation in the epigastric and right upper quadrant area. There is no sign of peritoneal irritation. Goncalves negative. Bowel sounds present. No organomegaly. Extremities: No clubbing, cyanosis, or edema. Peripheral pulses present in both legs. Neurological: The patient is alert and oriented x3. Moves 4 extremities. LABORATORY DATA: White cell count 14.79, hemoglobin 12.5, hematocrit 35.9, platelets 285,000. BMP unremarkable. ASSESSMENT AND PLAN: 1. Chest pain. Actually, the symptoms of chest pain were not completely clear. Actually, now she is describing more like an epigastric pain and also right upper quadrant pain. In any case, the patient has been evaluated by Cardiology, who thinks that those symptoms are probably secondary to gastrointestinal. So, they are going to follow up with an echocardiogram, but no recommendations from their standpoint. Troponin has been checked 3 times, and has been negative so far. 2. Urinary tract infection. Urine culture is positive for gram-negative rods. We will continue with ceftriaxone 1 g IV q.24 hours. 3. History of hypercoagulability problem. Because she had a strong family history of early stroke and myocardial infarction, we have ordered a hypercoagulability workup. We will see what it shows. 4. Chronic obstructive pulmonary disease. The patient is not in any exacerbation. We will continue with DuoNeb as needed. 5. Diabetes mellitus type 2. The patient is using diet to control diabetes. Hemoglobin A1c is 5.4, which means excellent control of diabetes. We will continue with the same management. 6. Hypothyroidism. We will continue with Synthroid. 7. Hyperlipidemia. The patient does not take any medication for hyperlipidemia. We have checked a cholesterol here and it is 121, so I do not think this patient will need any statins at this time. 8. Cholelithiasis. The patient was complaining of right upper quadrant abdominal pain, and the CT showed cholelithiasis. No cholecystitis. So, at this time, we are going to continue watching this patient closely. The patient has been advised to look for a local surgeon to most probably perform cholecystectomy. DISPOSITION: If echocardiogram is okay, white cell count continues to drop, and we have results of urine culture, we may be able to discharge this patient tomorrow. cc: Roberto Méndez MD
[2017-04-29] MEDS: LOVENOX SUBQ SCH (21:14)
[2017-04-30 05:59] LABS: BASO% 0.3 % (0.0-0.8); EOS# 0.19 X1000 (0.0-0.7); HEMATOCRIT 35.1 % (37.0-47.0); HEMOGLOBIN 12.1 g/dL (12.0-16.0); IMM GRAN# 0.07 X1000 (0.0-0.04); IMM GRAN% 0.8 % (0.0-0.5); LYMPH# 2.52 X1000 (1.2-3.4); LYMPH% 27.1 % (20.5-51.1); MANUAL DIFF NEEDED? YES; MCH 31.8 PG (27-31); MCHC 34.5 g/dL (33-37); MCV 92.1 FL (81-99); MONO# 1.39 X1000 (0.11-0.59); MONO% 14.9 % (1.7-9.3); MPV 10.2 FL (7.4-10.4); NEUT% 54.9 % (42.2-75.2); PLT 323 X1000 (130-400); RBC 3.81 XMIL (4.2-5.4)
[2017-04-30] MEDS: SYNTHROID PO SCH (06:01)
[2017-04-30 06:31] LABS: BANDS 10 % (0-1); EOS 2 % (1-10); LYMPHS 28 % (21-51); MONO 8 % (1-9)
[2017-04-30 06:58] LABS: AGAP 14; BUN 13 mg/dL (8-22); CALCIUM 8.8 mg/dL (8.8-10.2); CHLORIDE 97 mmol/L (98-107); COSMO 270; POTASSIUM 3.6 mmol/L (3.5-5.1); SODIUM 135 mmol/L (136-145); TCO2 24 mmol/L (25-35)
[2017-04-30 07:55] VITALS: BP 117/68
[2017-04-30] MEDS: LIDODERM TOP SCH (08:41)
[2017-04-30] MEDS: NICODERM PATCH TD SCH (08:42)
[2017-04-30] MEDS: ADDERALL PO SCH (08:42)
[2017-04-30] MEDS: NORCO-5 PO PRN (08:42)
[2017-04-30] MEDS: LEXAPRO PO SCH (08:43)
[2017-04-30] MEDS: ASPIRIN EC PO SCH (08:43)
[2017-04-30] MEDS: DITROPAN PO SCH (08:43)
--- NOTE | 2017-04-30 14:59 | DISCHARGE SUMMARY ---
ADMISSION DATE: 04/28/2017 DISCHARGE DATE: 04/30/2017 ADMISSION DIAGNOSES: 1. Chest pain. 2. Urinary tract infection. 3. Elevated D-dimer, with family history of stroke and myocardial infraction. 4. Chronic obstructive pulmonary disease. No exacerbation. 5. Diabetes mellitus type 2, diet-controlled at home. 6. Hypothyroidism. 7. Hyperlipidemia. DISCHARGE DIAGNOSES: 1. Chest pain. Ruled out for myocardial infraction. All cardiac enzymes were negative. 2. Urinary tract infection with possible pyelonephritis. She will be going home on Keflex 500 mg p.o. t.i.d. for 10 days. 3. Family history of stroke, myocardial infarction, elevated D-dimer. She had no pulmonary emboli. Hypercoagulable workup is still pending. 4. Chronic obstructive pulmonary disease, no exacerbation, with possible right lower lobe minimal pneumonia versus fibrosis. Again, she is going home on antibiotics. 5. Diabetes mellitus type 2. This is diet-controlled at home. A1c is in normal range. 6. Hypothyroidism stable. 7. Hyperlipidemia. All that was found on her cholesterol panel was a low HDL, so no indications for a statin. 8. Cholelithiasis. She is to follow up with Dr. Vinay Segal as outpatient. CONSULTATIONS: 1. Dr. Connor Erickson, with Cardiology. Cardiac cause was ruled out, but, given family history, he recommends following up as outpatient for outpatient heart catheterization or stress test. 2. Dr. Momo Segal was not consulted, but the patient is to follow up with him as an outpatient regarding her cholelithiasis. PROCEDURES: None. HOSPITAL COURSE: Ms Sandra Liz is a 46-year-old, female, with a medical history of hyperlipidemia, diabetes mellitus type 2, obstructive sleep apnea and COPD, who states that on the morning of admit, around 4 a.m., she was getting dressed for work. She works with [employer], and tends to lift very heavy items. She developed sudden onset of substernal pain, anterior chest. It was mostly that morning, the pain was about a 3 to 4, described as a dull sensation. She immediately afterwards had vomiting, after she took home Tums. She felt sweaty and nauseated all day, just hard to hold her balance, fatigued. During assessment, she was at 0/10 pain. She was stating that her food did not taste right. She had not eaten in 2 days. Workup revealed negative cardiac enzymes. No ST elevations. She did have a urinary tract infection, and stated that she was having burning sensation with foul smell since last week. She had been taken AZO to help with the pain. She also claimed that she has a strong family history of DVT, strokes and myocardial infarctions at young ages, so we ordered a hypercoagulable workup, which is not available at this time. Given the description of the chest pain, there is an order for abdominal CT to rule out any other GI causes for the pain she was having. She was admitted to the medical floor. Her cardiac enzymes remained negative throughout her stay. Her white blood cells trended down, from 17 to 14 to 9. She was never febrile. All her vital signs remained stable. She was deemed appropriate to be discharged home. She never claimed to have any shortness of breath, but she did state she had a history of COPD and, on the abdominal and pelvic CT, it mentioned right lower lobe minimal pneumonia versus fibrosis. It also mentioned pyelonephritis with the urinary tract infection that she has, and it mentioned cholelithiasis, which she should follow up as outpatient with Dr. Philipp coello. DISCHARGE VITAL SIGNS: Temperature 98.4 degrees, heart rate 86, respiratory rate 16, blood pressure 117/68, O2 saturation 100% on room air. DISCHARGE LABORATORY DATA: White blood cells 9000, hemoglobin 12, hematocrit 35, platelet count 323,000. Sodium 135, potassium 3.6, BUN 13, creatinine 0.9, glucose 102, calcium 8.8. Hemoglobin A1c was 5.4. Triglycerides 106, total cholesterol 121, LDL 26, and HDL 24. TSH was 3.09. B12 was 483. Homocystine of 8.5. Her urinalysis on admit was 4+ bacteria, with nitrites. IMAGING DURING STAY: Chest x-ray on admit: No acute disease. Pulmonary arteriogram: No evidence of pulmonary emboli. Abdominal and pelvic CT: Possibility of pyelonephritis could not be ruled out. Ovarian cyst. Cholelithiasis. Then it also mentioned right lower lobe, both posterolaterally and medially, with ill-defined pleural-based opacities, and that the possibility of minimal pneumonia versus fibrosis was suggested. Echocardiogram: Trace mitral regurgitation and ejection fraction of 60%. EKG on 04/28/2017: Normal sinus rhythm, rate 99, QTc is 431. No ST elevations. EKG later that day: Sinus tachycardia, 101. QTc 456. DISCHARGE DIET: Heart healthy. DISCHARGE ACTIVITY: As tolerated. DISCHARGE DISPOSITION: Home. DISCHARGE INSTRUCTIONS: Follow up with Dr. Erickson in 1 month, [facility], to determine if stress test is needed, and also to follow up with Dr. Vinay Segal as an outpatient due to her cholelithiasis. She is also to continue taking her Keflex 500 mg p.o. t.i.d. for 10 days to treat her UTI, pyelonephritis, and possible minimal pneumonia. Dictated by CHA Benton for Roberto Méndez MD cc: CHA Benton MD
--- NOTE | 2017-05-01 07:41 | EKG Report ---
Test Performed on : 04/29/2017 06:09:06 AM Test Reason : chest pain Blood Pressure : / mmHG Vent. Rate : 075 BPM Atrial Rate : 075 BPM P-R Int : 132 ms QRS Dur : 082 ms QT Int : 404 ms P-R-T Axes : 064 061 057 degrees QTc Int : 451 ms Normal sinus rhythm. Normal ECG When compared with ECG of 28-APR-2017 16:06, (Unconfirmed) No significant change was found Confirmed by Avel Barr MD ([id number]) on 05/01/2017 9:26:56 PM
== END 2017-04-30 09:06 | disposition home or self-care (01) ==
LOC: 4N 13:22 → ED 13:22
PROVIDERS: ATTEND Internal Medicine